=== PATIENT | male | born 1960 | race Caucasian/White ===

== ENCOUNTER → 2017-01-16 | Outpatient (CLI) | payer OTHER ==
--- NOTE | 2017-01-16 16:53 | CONS ---
CONSULTATION DATE OF CONSULTATION: 01/16/2017 This is a 56-year-old gentleman who has been evaluated in the sleep center for obstructive sleep apnea-hypopnea syndrome. HISTORY OF PRESENT ILLNESS/SLEEP-WAKE EVALUATION: Patient's usual sleep schedule is from 1 a.m. until 7:30 a.m. Sometimes he has problem with falling asleep. He may have some pain in his right foot which interferes with the process of falling asleep. He has a TV set in the bedroom. During sleep he snores and, according to his , he stops breathing during sleep. He has awakenings from sleep with a dry mouth and nocturia and drinks water during the night. He also has a burning sensation in his feet and during the night. During the day, the patient feels sleepiness, wakes up tired, has difficulties paying attention. He takes naps up to 2 times. [place] Sleepiness Scale is significantly increased at 16. PAST MEDICAL HISTORY: Positive for hypertension and right heel bone spur. PAST SURGICAL HISTORY: Status post left knee ACL surgery in 2012. MEDICATIONS: Lopressor, Motrin. SOCIAL HISTORY: Negative for smoking. Alcohol consumption occasional. FAMILY HISTORY: Hypertension, heart problems, stroke. REVIEW OF SYSTEMS: Awakenings from sleep. Significant sleepiness during the day. Burning sensation in the feet. PHYSICAL EXAM: This is a 56-year-old gentleman without distress. VITAL SIGNS: BP 149/104, HR 64, RR 16, height 6 feet 1 inch, weight 291.4, BMI 37.8, temperature 97.4. Neck 18 inches in circumference. Oxygen saturation at room air 94%. Retake blood pressure on the left arm 151/88. HEENT: PERRLA, EOMI. Evaluation of oropharynx showed tongue protrudes midline. Extremely low position of soft palate. Restriction of nasal breathing bilaterally. NECK: Wide. LUNGS: Clear to percussion and to auscultation. Good air exchange. No wheezing or rhonchi. HEART: S1, S2 regular. No murmurs, gallops or rubs. ABDOMEN: Obese. EXTREMITIES: No clubbing or cyanosis. HYDRATOR: Awake, alert and oriented x3. Cranial nerves 2 to 7 intact. There is no fasciculation or atrophy noted. No focal deficits observed. IMPRESSION: 1. Snoring, witnessed episodes of stopped breathing during sleep, extremely low position of soft palate, awakenings with dry mouth, sleepiness; obstructive sleep apnea-hypopnea syndrome. 2. Significant excessive daytime sleepiness with [place] Sleepiness Scale increased at 16. No history or hypnagogic hallucinations, sleep paralysis or cataplexy. 3. Obesity; BMI 37.8. 4. Hypertension. 5. Right heel bone spur. 6. Status post left knee surgery for ACL and meniscus problems in 2012. PLAN: 1. Polysomnography for evaluation of patient's breathing during sleep. 2. CPAP/BiPAP titration if sleep study confirms obstructive sleep apnea-hypopnea syndrome. 3. Preferable position during sleep is on the side. 4. No driving if patient feels any sleepiness. Patient is aware of civil and criminal liability for unsafe driving. 5. I will see patient for follow-up visit to explain results of testing and follow-up plan. Thank you very much for referring this patient for consultation. Sincerely, Eleno Jones MD, PhD, FAASM Diplomat of [employer] Washer [facility] [place] MMODL / MELIN: [id number] /
== END ==
LOC: SLEEP 10:49
PROVIDERS: ATTEND Internal Medicine
DX: G47.33 Obstructive sleep apnea (adult) (pediatric) (principal); G47.10 Hypersomnia, unspecified; E66.9 Obesity, unspecified; I10 Essential (primary) hypertension; M77.31 Calcaneal spur, right foot; Z98.890 Other specified postprocedural states; Z68.37 Body mass index [BMI] 37.0-37.9, adult; Z79.899 Other long term (current) drug therapy
CPT/HCPCS: 99211

== ENCOUNTER → 2017-04-24 | Outpatient (CLI) | payer OTHER ==
--- NOTE | 2017-04-24 11:50 | PN ---
PROGRESS NOTE FOLLOW-UP VISIT DATE OF SERVICE: 04/24/2017 A 56-year-old gentleman has been followed in sleep center for treatment of obstructive sleep apnea-hypopnea syndrome. Recently patient had home sleep apnea test and CPAP titration and I discussed results of sleep studies with patient in details. He has severe sleep apnea and CPAP titration showed that on the pressure 13, his respiration was under control. He started to use his CPAP equipment without significant problems related to his mask home machine. Today, he came for followup visit with his CPAP unit. I checked CPAP unit usage is 21/30 nights for more than 4 hours. Average usage is 4.5 hours. Apnea-hypopnea index on the machine for the last month is only 3.3, which is perfect. Fitting of the mask is 68% with regarding to leak. [place] Sleepiness Scale today is 7. MEDICATIONS: Lopressor and Motrin. PHYSICAL EXAMINATION: During physical exam, patient in no distress. VITAL SIGNS: BP 155/93 on the right arm and 149/95 on the left arm, HR 60, RR 16, weight 267, temp 97.6, oxygen saturation room air 97%. HEENT: PERRLA, EOMI. Evaluation of oropharynx moderately low position of soft palate. NECK: Supple, no JVD. Thyroid is not palpable. LUNGS: Clear to percussion and to auscultation. Good air exchange. No wheezing or rhonchi. HEART: S1, S2 regular. No murmurs, gallops, or rubs. ABDOMEN: Obese. EXTREMITIES No clubbing or cyanosis. 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 Cranial nerves 2 to 7 intact. There is no fasciculation or atrophy. noted. No focal deficits observed. IMPRESSION: 1. Severe obstructive sleep apnea-hypopnea syndrome; apnea-hypopnea index 50.2 by results of home sleep apnea test with oxygen desaturation of 75% on control with CPAP at 13 cm of water. Patient demonstrated good compliance with treatment, benefitting from treatment. 2. Obesity. 3. Hypertension. 4. History of recent pneumonia. PLAN: 1. Patient will continue to use his equipment every night for the whole night. 2. Losing weight. 3. Sleep hygiene with regular time in bed for at least 8 hours. 4. No driving if feeling any sleepiness. Thank you very much for allowing me to participate in the management of your patient. Sincerely, Eleno Jones, MD, PhD, FAASM Diplomat of [employer] Apprentice [facility] [place] [id number] / VINCENT: [id number] /
== END | disposition home or self-care (01) ==
LOC: SLEEP 10:32
PROVIDERS: ATTEND Internal Medicine
DX: G47.33 Obstructive sleep apnea (adult) (pediatric) (principal); I10 Essential (primary) hypertension; E66.9 Obesity, unspecified; Z87.01 Personal history of pneumonia (recurrent); Z79.1 Long term (current) use of non-steroidal anti-inflammatories (NSAID); Z79.899 Other long term (current) drug therapy; Z99.89 Dependence on other enabling machines and devices